=== PATIENT | female | born 1965 | race Caucasian/White ===

== ENCOUNTER 2016-09-12 12:24 | Emergency (ER) | payer SELFPAY | END 2016-09-12 13:47 | disposition home or self-care (01) | LOC: ER 12:24 | PROC: 2W3RX1Z Immobilization of Left Lower Leg using Splint (ICD-10-PCS; principal; 2016-09-12) | DX: S82.842A Displaced bimalleolar fracture of left lower leg, initial encounter for closed fracture (principal); F32.9 Major depressive disorder, single episode, unspecified; F41.9 Anxiety disorder, unspecified; Z90.710 Acquired absence of both cervix and uterus; X50.0XXA Overexertion from strenuous movement or load, initial encounter | CPT/HCPCS: 73610-LT; 96372; 99283; J1170; J2405 ==